=== PATIENT | female | born 1980 | race Two or more races ===

== ENCOUNTER 2017-03-14 10:52 | Emergency (ER) | payer MEDICAID ==
[~2017-03-14] VITALS: Ht 160 cm; Wt 51.7 kg
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
[2017-03-14] MEDS ORDERED: ACETAMINOPHEN ES 500 MG TABLET PO ONE ×2 (11:00→12:00)
[2017-03-14] MEDS ORDERED: ACETAMINOPHEN ES 500 MG TABLET ONE (11:04)
--- NOTE | 2017-03-14 11:06 | NUR ---
PT TAKEN TO XRAY
--- NOTE | 2017-03-14 11:25 | NUR ---
PATIENT RETURNED BACK FROM XRAY IN STABLE CONDITION.
[2017-03-14 12:04] VITALS: BP 124/72
--- NOTE | 2017-03-14 12:38 | NUR ---
Patient discharged to home in stable condition. Written and verbal after care instructions given. Patient verbalizes understanding of instruction.
== END 2017-03-14 12:38 | disposition home or self-care (01) ==
LOC: ER 10:53
DX: S16.1XXA Strain of muscle, fascia and tendon at neck level, initial encounter (principal); V43.52XA Car driver injured in collision with other type car in traffic accident, initial encounter; Y93.89 Activity, other specified; Y92.488 Other paved roadways as the place of occurrence of the external cause; Y99.8 Other external cause status
CPT/HCPCS: 71010; 72040; 99284; A4606; Z7610